=== PATIENT | male | born 1955 | race Caucasian/White ===

== ENCOUNTER 2021-10-23 08:28 | Outpatient (REF) | payer MEDICARE, SELFPAY ==
--- NOTE | ~2021-10-23 | XR_ITS ---
EXAMINATION: XR HIP, LEFT CLINICAL INFORMATION: Chronic pain. COMPARISON: None TECHNIQUE: AP and frog-leg lateral views of the left hip. FINDINGS: Bones and soft tissues are normal. No fracture. Alignment is anatomic. Hip joint space is maintained. The left femoral head appears smooth. No foreign body is seen. XR/XR hip LT min 2V IMPRESSION: Normal left hip.
== END 2021-10-23 08:29 | disposition home or self-care (01) ==
LOC: HO.LAB 08:28
PROVIDERS: PCP Internal Medicine; Visit Provider Internal Medicine
DX: M25.552 Pain in left hip (principal)
CPT/HCPCS: 73502

== ENCOUNTER 2021-11-01 18:51 | Outpatient (REF) | payer MEDICARE, SELFPAY ==
--- NOTE | ~2021-11-01 | MR_ITS ---
EXAMINATION: MR HIP WITHOUT CONTRAST, LEFT CLINICAL INFORMATION: Left hip pain, tenderness, and limited range of motion. Buckling of the femoral head. COMPARISON: Left hip radiographs dated 10/23/2021. TECHNIQUE: MRI of the left hip was obtained using routine sequences on a high-field magnet. FINDINGS: ACETABULAR LABRUM: Linear fluid signal within the undersurface of the anterosuperior labrum, consistent with nondisplaced undersurface tearing. Mild fraying through the periphery of the anterosuperior labrum. ARTICULAR CARTILAGE/BONE: Full-thickness superolateral acetabular and femoral head articular cartilage loss with mild underlying subchondral cystic change. Small marginal osteophytes. No stress reaction, fracture, or avascular necrosis. The acetabular depth is within normal limits. MUSCLES/TENDONS: Mild gluteus minimus tendinosis. There is edema within the distal iliopsoas muscle with mild adjacent soft tissue edema, consistent with an acute muscle strain. JOINT FLUID/BURSA: Moderate joint effusion. Lobulated heterogeneous signal along the anterior aspect of the femoral head/neck junction measuring approximately 3 x 1.3 x 3.3 cm, consistent with lobulated synovitis. INTRAPELVIC STRUCTURES: Unremarkable. MR/MR hip LT wo con IMPRESSION: 1. No displaced undersurface tear of the anterosuperior labrum with peripheral labral fraying. 2. Moderate left hip osteoarthritis. Moderate joint effusion with anterior lobulated synovitis measuring up to 3.3 cm. No stress reaction, fracture, or avascular necrosis. 3. Acute strain of the distal iliopsoas myotendinous junction without a measurable tendon defect. 4. Mild gluteus minimus tendinosis.
== END 2021-11-01 18:52 | disposition home or self-care (01) ==
LOC: HO.MRI 18:51
PROVIDERS: PCP Internal Medicine; Visit Provider Internal Medicine
DX: M25.552 Pain in left hip (principal)
CPT/HCPCS: 73721

== ENCOUNTER 2024-10-28 12:54 | Outpatient (AMB) | payer MEDICARE, SELFPAY ==
--- NOTE | 2024-10-28 12:56 | MHC.OFFVIS ---
Vital Signs 10/28/24 13:04 Height 5 ft 10 in Weight 206 lb BMI 29.6 BP 150/85 H Blood Pressure Location Rt brachial Position Sitting Pulse 70 Intake Visit Reasons: [facility] Intake Note: Patient is seen in office for evaluation and treatment of a right inguinal hernia. Present for 2yrs. Pt c/o: becoming uncomfortable. Bulge feels large at times. Coughing makes it worse, feels like stabbing pain. ref. Dr aSenz Tower Erector Helper Required: No Accompanied by: Self / Same As Patient Allergies No Known Allergies Allergy (Verified 10/28/24 13:01) Medication List - Last Reconciled 10/28/24 by Torsten Ramirez MD No Known Home Meds HPI Comments Details: 69-year-old male patient presenting for evaluation of a right inguinal hernia. He has known about the hernia for many years but generally had no symptoms. More recently he notes the lump is increasing in size and may be affecting his ability to urinate. The lump does reduce when he is lying down. He denies any nausea, vomiting, fever, chills or recent bowel changes. He reports a previous left inguinal hernia repaired when he was 29 years old. He denies any previous surgery in the right groin. [facility] Medical History Right inguinal hernia Surgical History H/O left inguinal hernia repair Social History Patient Tobacco Use Status: Never used Tobacco Review of Systems Const All systems reviewed & are unremarkable except as noted in HPI and below Denies chills, Denies fever(s), Denies headache(s), Denies poor appetite and Denies weakness ENT Denies headache(s) Card Denies chest pain, Denies irregular heart rhythm, Denies palpitations and Denies dyspnea Resp Denies cough, Denies excessive phlegm production and Denies dyspnea GI Denies abdominal pain, Denies bloating, Denies change in bowel habits, Denies constipation, Denies heartburn, Denies diarrhea, Denies nausea and Denies vomiting Denies difficulty urinating and Denies urinary frequency Musc Denies back pain, Denies muscle weakness and Denies numbness Skin/Breast Denies changing lesions and Denies unusual bruising Neuro Denies headache(s), Denies numbness, Denies paresthesias and Denies weakness Psych Denies anxiety and Denies depression Endo Denies palpitations Edson/Lymph Denies lymphadenopathy Physical Exam Const General: cooperative and no acute distress Nutritional Appearance: well nourished Orientation/consciousness: patient oriented x3 Limitations: no limitations HEENT Head: Yes normocephalic and Yes atraumatic Ears: hearing grossly normal bilaterally Resp Effort & Inspection: normal respiratory effort, no audible wheezes, no cough and no respiratory distress Cardio Jugular venous distension: no JVD GI Other: Examination in the standing position with Valsalva maneuvers confirms a moderate size right inguinal hernia which reduces with light pressure. There is no tenderness to palpation. Well-healed incision in the left groin is noted with no evidence of a recurrent left inguinal hernia. Inspection: Yes normal to inspection Abdomen image: 1. Palpable hernia right side Skin Other: Warm, dry, no rash Neuro General: patient oriented x3 Extrem General: Yes no clubbing, cyanosis or edema Assessment & Plan Assessment & Plan (1) Right inguinal hernia: Code(s): K40.90 - Unilateral inguinal hernia, without obstruction or gangrene, not specified as recurrent Category: Medical Plan 69-year-old male patient presenting with complaints of a lump in the right groin found on examination to have a reducible right inguinal hernia. I recommended repair of this right inguinal hernia with mesh and after discussion of the procedure, risks and alternatives, consents to the procedure. Coding Level of Care Code New Pt Level 4 (72153) Diagnoses Right inguinal hernia K40.90
[2024-10-28 13:04] VITALS: BP 150/85; PULSE 70; BMI 29.6
--- OUTSIDE RECORDS SUMMARY | 2024-10-28 16:44 | XMS_ITS | Patient Health Record ---
Author Organization [facility] Address [address] [place] [address] Care Team Providers Care Tram Inspector Name Role Phone Jason Saenz MD Primary Care Provider Crow Dhaliwal Unavailable [phone] REASON FOR REFERRAL No Information IMMUNIZATIONS Vaccine Route Administration Date Status Comme nts Influenza Unknown 06/04/2019 Refused SOCIAL HISTORY Sex Assigned At : Social History Observation Description Sex Assigned At Unknown PROBLEMS Problem Type ICD Code Onset Dates Problem Status W/U Status Risk SNOMED Code Notes Problem Encounter for screening for malignant neoplasm of colon (Z12.11) Active confirmed 947573480 Problem Preprocedural examination (Z01.818) Active confirmed 931497128901858 Problem Hx of adenomatous colonic polyps (Z86.010) Active confirmed 576001355 PLAN OF TREATMENT Future Test Test Name Order Date COLONOSCOPY 08/12/2012 COLONOSCOPY 06/04/2019 Next Appt Details Provider Name:Crow Ray Graham , 03/09/2025 01:00:00 PM, [address], [address], [place], [address], Insurance Providers Payer Name Payer Address Payer Phone Subscriber Number Group Number Insured Name Patient Relationship to Insured Coverage Start Date Coverage End Date MEDICARE OF [place] [address] [place] [address] [id number] CARISSA KAY Self - patient is the insured MED[employer] ATTN CLAIMS [address] [place] [address] [id number] CARISSA KAY Self - patient is the insured MEDICAL (GENERAL) HISTORY Medical History History ICD Code Denies [place],DM,CVA,Lung disease,renal dise ase Colonoscopy 09/2012--1 small tubular nargis greta removed Surgical History Surgery Date(Month/Year) Vasectomy Left Knee
== END 2024-10-28 13:17 | disposition home or self-care (01) ==
PROVIDERS: PCP Internal Medicine; Visit Provider Surgery
DX: K40.90 Unilateral inguinal hernia, without obstruction or gangrene, not specified as recurrent (principal)
CPT/HCPCS: 99204

== ENCOUNTER → 2024-10-28 12:54 | Outpatient (BNVA) | payer MEDICARE, SELFPAY | PROVIDERS: PCP Internal Medicine; Visit Provider Surgery | DX: K40.90 Unilateral inguinal hernia, without obstruction or gangrene, not specified as recurrent (principal) | CPT/HCPCS: 99202 ==

== ENCOUNTER 2024-10-30 07:57 | Outpatient (REF) | payer MEDICARE, SELFPAY ==
[2024-10-30 08:10] LABS: MANUAL DIFF FLAG NO
[2024-10-30 08:24] LABS: Basophils Percent Auto 0.4 % (0-2); Eosinophils Absolute Auto 0.2 X10*3/uL (0.0-0.4); Hematocrit 45.5 % (42.0-52.0); Hemoglobin 16.1 g/dl (14.0-18.0); Imm Gran Abs Auto 0.01 X10*3/uL (0.00-0.03); Imm Gran Pct Auto 0.2 % (0.0-0.4); Lymphocytes Absolute Auto 1.7 X10*3/uL (1.2-4.9); Lymphocytes Percent Auto 32.1 % (20-40); Mean Corpuscular HGB Conc 35.4 g/dl (31.0-36.0); Mean Corpuscular Hemoglobin 30.8 pg (27.0-33.0); Mean Corpuscular Volume 87.2 fL (80.0-98.0); Mean Platelet Volume 9.8 fL (9.4-12.4); Monocytes Absolute Auto 0.5 X10*3/uL (0.1-1.2); Monocytes Percent Auto 8.6 % (2-11); Neutrophils Percent Auto 55.7 % (45-73); Platelet Count 190 X10*3/uL (160-400); Red Blood Count 5.22 X10*6/uL (4.60-5.80); Red Cell Distribution Width 12.2 % (11.0-16.0); White Blood Count 5.4 X10*3/uL (4.8-10.8)
[2024-10-30 08:50] LABS: Alanine Aminotransferase 35 U/L (0-40); Albumin Level 4.4 g/dL (3.5-5.0); Alkaline Phosphatase 89 U/L (39-117); Anion Gap 11 (12-20); Aspartate Amino Transferase 26 U/L (5-37); Bilirubin Total 0.5 mg/dL (0.0-1.0); Blood Urea Nitrogen 18 mg/dL (9-16); Calcium 9.4 mg/dL (8.4-10.2); Carbon Dioxide 26 mmol/L (22-29); Chloride 107 mmol/L (96-108); Cholesterol 209 mg/dL (<200); Estimated Glomerular Filt Rate > 60; Glucose Fasting 94 mg/dL (60-99); HDL Cholesterol 41 mg/dL (>40); LDL Cholesterol Calculated 141 mg/dL (<100); Potassium 4.2 mmol/L (3.3-5.1); Sodium 140 mmol/L (135-145); Total Protein 7.8 g/dL (6.5-8.0); Triglycerides 135 mg/dL (<150)
[2024-10-30 10:15] LABS: Appearance Urine Clear; Color Urine Yellow; Glucose Urine UA Negative (Negative); Leukocyte Esterase Urine Small (1+) (Negative); Nitrite Urine Negative (Negative); PH 5.5 (5.0-9.0); UMIC TRIGGER UA YES; Urine Blood Negative (Negative); Urine Ketones Negative (Negative); Urine Protein Negative (Neg-Trace)
[2024-10-30 10:30] LABS: Bacteria Urine None Seen (None Seen); Hyaline Casts Urine 0-2 /LPF (0-2); RBC Urine 0-2 /HPF (0-2); Squamous Epithelial Cell Urine 0-2 /HPF (0-2); WBC Urine 0-5 /HPF (0-5)
== END 2024-10-30 07:58 | disposition home or self-care (01) ==
LOC: HO.LAB 07:57
PROVIDERS: PCP Internal Medicine; Visit Provider Internal Medicine
DX: N40.0 Benign prostatic hyperplasia without lower urinary tract symptoms (principal); Z12.5 Encounter for screening for malignant neoplasm of prostate; I25.10 Atherosclerotic heart disease of native coronary artery without angina pectoris
CPT/HCPCS: 36415; 80053; 80061; 81001; 81003; 84153; 85025

== ENCOUNTER 2024-12-08 05:53 | Day surgery (SDC) | payer MEDICARE, SELFPAY ==
[2024-12-06 09:12] VITALS: BMI 29.6
--- NOTE | 2024-12-06 14:42 | HO.ANESPROP2 ---
Documented by User: Madie Yang NP 12/06/24 14:43 HPI - Anesthesia Eval Consult details Narrative: 69yo M for Repair Hernia Inguinal Reducible with mesh PMFSH Active Problems Active Problems: All Active Problems Right inguinal hernia (Acute) Past Medical History Medical History Right inguinal hernia Surgical History Surgical History H/O left inguinal hernia repair Social History Social History Patient Tobacco Use Status: Never used Tobacco Use of substances other than those prescribed or required for medical reasons: No Advance Directives: No Advance Directives Information Provided: Yes Meds Allergies Allergy/AdvReac Type Severity Reaction Status Date / Time No Known Allergies Allergy Verified 10/28/24 13:01 Home Medications ?Medication ?Instructions ?Recorded ?Confirmed ?Last Taken ?Type No Known Home Meds 10/28/24 10/28/24 Unknown History Exam Height,Weight and Vital Signs: Height 5 ft 10 in Weight 93.44 kg Pertinent Lab Results Pertinent Lab Results: Laboratory Tests 10/30/24 08:09 WBC 5.4 Hgb 16.1 Hct 45.5 Plt Count 190 Sodium 140 Potassium 4.2 Chloride 107 Carbon Dioxide 26 BUN 18 H Creatinine 0.95 Assessment and Plan Assessment Anesthesia Assessment: Chart Reviewed Documented by User: Jose M Layne MD 12/08/24 07:28 PMFSH Past Medical History Medical History Right inguinal hernia Functional capacity: wheelchair bound Family History Family history of problems with anesthesia: No Surgical History Surgical History H/O left inguinal hernia repair History of Problems with Anesthesia: No Social History Social History Patient Tobacco Use Status: Never used Tobacco Use of substances other than those prescribed or required for medical reasons: No Advance Directives: No Advance Directives Information Provided: Yes Meds Allergies Allergy/AdvReac Type Severity Reaction Status Date / Time No Known Allergies Allergy Verified 10/28/24 13:01 Home Medications ?Medication ?Instructions ?Recorded ?Confirmed ?Last Taken ?Type No Known Home Meds 10/28/24 10/28/24 Unknown History Exam Airway Mallampati Class: II TM Dist: <=3cm Neck ROM: Full Loose/Missing/Broken Teeth: No Heart: ok Lungs: ok Assessment and Plan Assessment Anesthesia Assessment: Anesthesia Plan Discussed Final Anesthetic Review Family History of Problems with Anesthesia: No History of Problems with Anesthesia: No NPO: Yes ASA Class: II Final Preanesthetic Review: No Changes in Pt Med Stat, Meds/Allgs Chart Reviewed, Consent Obtained/Reviewed and Anes Risks/Benef Reviewed Patient Risk: Intermediate Procedure Risk: Low Anesthetic Plan Anesthetic Plan: GA and Agree w/ Assess. and Plan Disposition: Standard PACU
[2024-12-08] MEDS: Lactated Ringers 1,000 ML 100 ML IVCONT (06:51)
[2024-12-08 06:52] VITALS: BP 174/99; PULSE 56; RESP 16; TEMP 36.8; O2SAT 100; BMI 29.7
[2024-12-08] MEDS: ceFAZolin Sodium/Dextrose,Iso 2 GM/50 ML PIGGYBACK IV (07:25)
--- NOTE | 2024-12-08 07:30 | MHC.SHP ---
Pre-Procedural Eval Section A - 24 Hr Update-Section A only Date of Service: 12/08/24 The patient is an INPATIENT: No Changes since office visit: Yes Patient answered all questions; No Cold of Flu in the past 2 weeks, No New Medical Problems and No Changes in Medication The patient has been examined within 24 hours of the surgical procedure. The History & Physical has been completed within 30 days and I have reviewed it.: No Section B - Complete if H&P > 30 days Chief Complaint: Unilateral inguinal hernia, without obstruction Details of Present Illness: No changes Relevant Family History (Specify if Yes): No Relevant Social History: None Present Medications: see Short Stay Collaborative assessment Medical History: No relevant PMH History of Previous Operations: No relevant previous surgery Allergies: Allergies Allergy/AdvReac Type Severity Reaction Status Date / Time No Known Allergies Allergy Verified 10/28/24 13:01 Review of Systems Sugical H&P ROS: Negative: Constitution, Cardiovascular, Respiratory, Neurological, Psychiatric, Hem-Onc, Allergic/Immunologic, Gastrointestinal, Genitourinary, Musculoskeletal and Integumentary Exam Surgical H&P Exam: Normal: HEENT, Normal: Heart, Normal: Lungs, Normal: Extremities, Normal: Abdomen and Normal: Skin Plan Diagnosis/Plan: Unchanged I have reviewed the history and physical and performed a pertinent physical examination on my patient. No changes have occurred unless specified. Time Spent With Patient Time: Total time managing care of this patient today ____ minutes.
--- NOTE | 2024-12-08 08:26 | W.PM.OPN ---
Operative Note Operative Note Date of Service: 12/08/24 Narrative: Preoperative diagnosis: Right inguinal hernia Postoperative diagnosis: same Procedure: Repair right inguinal hernia with mesh Surgeon: Torsten Ramirez MD Business And Services Instructor: Meghan Mary PA-C, Carlos Antony, MS-3 Anesthesia: General LMA Indications for procedure: 69-year-old male with a previous history of a left inguinal hernia repaired several years ago now presenting with a new hernia on the right side. On examination the hernia is in the medial inguinal canal suggestive of a direct inguinal hernia. The hernia is easily reducible with light pressure. Operative findings: Direct inguinal hernia, reducible repaired with a large extended PHS mesh. Specimen: None Estimated blood loss: 2 mL Complications: None Procedure details: Patient was brought to the OR and placed in a supine position. After administering general anesthesia the patient's abdomen was prepped with ChloraPrep and draped in a sterile fashion. A surgical time-out was called the consent confirmed. Patient received preoperative antibiotics and Venodyne boots were in place. Local anesthesia was then infiltrated over the right inguinal ligament. Incision was then made with a scalpel and carried out through subcutaneous tissue, past Tomasa's fascia, and up to the external oblique aponeurosis. Additional local was infiltrated below the external oblique aponeurosis. This was then incised with a scalpel widened with the Metzenbaum scissors. The spermatic cord was then dissected free from the surrounding inguinal canal. This was retracted using a Juan drain. A direct inguinal hernia was easily identified. Fibers of the cremaster muscle were and no indirect hernia sac identified. Attention was then directed to the direct hernia. Fibers of the internal oblique and transversalis aponeurosis were then incised and the preperitoneal space entered. The preperitoneal space was then further opened using an open Ray-Johnny sponge. A large extended PHS mesh was then obtained. The circular underlay was deployed within the preperitoneal space in the overlay secured to the pubic tubercle, conjoined tendon, and shelving edge of the inguinal ligament using a 0 Polysorb suture. A slit was made in the mesh at the internal ring in the mesh wrapped around the spermatic cord. This was then secured to the shelving edge using the 0 Polysorb suture. Additional sutures were placed laterally to secure the mesh along the conjoined tendon and shelving edge. The internal ring was loose enough to allow the tip of the index finger to pass. The remainder of the mesh was placed below the external oblique aponeurosis. Wounds were then irrigated with saline solution and suctioned dry. External oblique aponeurosis was then closed over the mesh using a running 2-0 Polysorb suture. Approximately 8 mL of Zenrelef was then instilled below the external oblique aponeurosis for postop pain relief. Tomasa's fascia was then reapproximated using interrupted 3-0 Polysorb sutures. Dermis was then reapproximated using interrupted 3-0 Polysorb sutures. Skin was closed using a running subcuticular 4-0 Polysorb suture. Steri-Strips, 2 x 2 gauze and Tegaderm were then applied. The patient tolerated the procedure well. Sponge, instrument, and needle counts reported as correct. The patient was transferred to PACU in stable condition.
[2024-12-08 08:43] VITALS: BP 125/83; PULSE 70; RESP 16; TEMP 36.1; O2SAT 96
[2024-12-08 08:48] VITALS: BP 104/54; PULSE 60; RESP 16; O2SAT 99
[2024-12-08 08:53] VITALS: BP 108/67; PULSE 63; RESP 16; O2SAT 98
[2024-12-08 08:58] VITALS: BP 113/79; PULSE 57; RESP 16; O2SAT 99
[2024-12-08 09:13] VITALS: BP 120/82; PULSE 51; RESP 18; TEMP 36.1; O2SAT 99
== END 2024-12-08 09:41 | disposition home or self-care (01) ==
PROVIDERS: PCP Internal Medicine; Visit Provider Surgery
PROC: (CPT 49505; principal; 2024-12-08 07:30)
DX: K40.90 Unilateral inguinal hernia, without obstruction or gangrene, not specified as recurrent (principal); Z98.890 Other specified postprocedural states
CPT/HCPCS: 49505; C1781; C9088; J0690; J2003; J2704; J2795; J3010

== ENCOUNTER → 2024-12-08 05:53 | Outpatient (BNV) | payer MEDICARE, SELFPAY | PROVIDERS: PCP Internal Medicine; Visit Provider Surgery | DX: K40.90 Unilateral inguinal hernia, without obstruction or gangrene, not specified as recurrent (principal) | CPT/HCPCS: 49505 ==

== ENCOUNTER 2024-12-16 08:57 | Outpatient (AMB) | payer MEDICARE, SELFPAY ==
--- NOTE | 2024-12-16 08:58 | MHC.OFFVIS ---
Vital Signs 12/16/24 09:04 Height 5 ft 10 in Weight 210 lb BMI 30.1 BP 145/85 H Blood Pressure Location Lt brachial Position Sitting Pulse 63 Intake Visit Reasons: s/p Right inguinal hernia w/mesh Intake Note: Patient is seen in office for post op assessment post Repair right inguinal hernia with mesh. Pt c/o: denies any concerns at the time of visit surgery:12/08/24 Railroad Passenger Agent Required: No Accompanied by: Self / Same As Patient Allergies No Known Allergies Allergy (Verified 12/16/24 09:03) Medication List - Last Reconciled 12/16/24 by Torsten Ramirez MD No Known Home Meds HPI Comments Details: Patient returns 1 week following repair of a right inguinal hernia with mesh. He reports some residual discomfort but has only been taking Tylenol which he stopped several days ago. He denies any redness or discharge from the incision. He is eating well and reports normal bowel movements. [facility] Medical History Right inguinal hernia Surgical History History of right inguinal hernia repair (12/08/24) H/O left inguinal hernia repair Social History Patient Tobacco Use Status: Never used Tobacco Physical Exam Vital Signs: Last Vital Signs Pulse 63 12/16/24 09:04 BP 145/85 H 12/16/24 09:04 BMI result Body Mass Index 30.1 Const General: no acute distress Nutritional Appearance: well nourished Orientation/consciousness: patient oriented x3 Resp Effort & Inspection: normal respiratory effort GI Other: Hernia incision in the right groin is clean, dry, and intact without redness or discharge. No hernia noted with Valsalva maneuvers. Inspection: Yes normal to inspection Palpation (GI): Soft to palpation, nontender and no guarding Neuro General: patient oriented x3 Assessment & Plan Assessment & Plan (1) Right inguinal hernia: Code(s): K40.90 - Unilateral inguinal hernia, without obstruction or gangrene, not specified as recurrent Category: Medical Plan 69-year-old male returning 1 week following repair of a right inguinal hernia with mesh on 12/08/2024. He tolerated the procedure well and his wounds are healing nicely. He has no evidence of hernia infection or recurrence. Continue to avoid lifting greater than 10 lb for the next 4 weeks and return at that time for wound check. Coding Level of Care Code Global (58053) Diagnoses Right inguinal hernia K40.90
[2024-12-16 09:04] VITALS: BP 145/85; PULSE 63; BMI 30.1
--- OUTSIDE RECORDS SUMMARY | 2024-12-16 09:29 | XMS_ITS | Patient Health Record ---
Author Organization [facility] Address [address] [place] [address] Care Team Providers Care Jacquard Card Lacer Name Role Phone Jason Saenz MD Primary Care Provider Sarabjit Graham Crow Unavailable [phone] Reason For Referral No Information Immunizations Vaccine Route Administration Date Status Comme nts Influenza Unknown 06/04/2019 Refused Problems Problem Type SNOMED Code ICD Code Onset Dates Problem Status W/U Status Risk Notes Problem [id number] Encounter for screening for malignant neoplasm of colon (Z12.11) Active confirmed Problem 721682478863287 Preprocedural examination (Z01.818) Active confirmed Problem 380561155 Hx of adenomatou s colonic polyps (Z86.010) Active confirmed Plan Of Treatment Future Test Test Name Order Date COLONOSCOPY 08/12/2012 COLONOSCOPY 06/04/2019 Next Appt Details Provider Name:Crow Ray Graham , 03/09/2025 01:00:00 PM, [address], [address], [place], [address], Insurance Providers Payer Name Payer Address Payer Phone Subscriber Number Group Number Insured Name Patient Relationship to Insured Coverage Start Date Coverage End Date MEDICARE OF [place] [address] [place] [address] [id number] CARISSA KAY Self - patient is the insured MED[employer] ATTN CLAIMS [address] [place] [address] [phone] [id number] CARISSA KAY Self - patient is the insured Medical (General) History Medical History History ICD Code Denies [place],DM,CVA,Lung disease,renal dise ase Colonoscopy 09/2012--1 small tubular nargis greta removed Surgical History Surgery Date(Month/Year) Vasectomy Left Knee
== END 2024-12-16 09:25 | disposition home or self-care (01) ==
LOC: HO.HGS 08:58
PROVIDERS: PCP Internal Medicine; Visit Provider Surgery
DX: K40.90 Unilateral inguinal hernia, without obstruction or gangrene, not specified as recurrent (principal)
CPT/HCPCS: 99024

== ENCOUNTER → 2024-12-16 08:57 | Outpatient (BNVA) | payer MEDICARE, SELFPAY | PROVIDERS: PCP Internal Medicine; Visit Provider Surgery | DX: Z48.815 Encounter for surgical aftercare following surgery on the digestive system (principal); Z98.890 Other specified postprocedural states | CPT/HCPCS: 99212 ==

== ENCOUNTER 2025-01-21 09:59 | Outpatient (AMB) | payer MEDICARE, SELFPAY ==
--- NOTE | 2025-01-21 10:04 | MHC.OFFVIS ---
Vital Signs 01/21/25 10:16 Height 5 ft 10 in Weight 209 lb 14.081 oz BMI 30.1 BP 147/82 H Blood Pressure Location Lt brachial Position Sitting Pulse 55 Intake Visit Reasons: 1 mth follow up s/p Right inguinal hernia w/mesh Intake Note: Patient is seen in office for one month follow up visit, post right inguinal hernia repair. Pt c/o: denies any concerns Supervisor Toy Assembly Required: No Accompanied by: Self / Same As Patient Allergies No Known Allergies Allergy (Verified 01/21/25 10:16) Medication List - Last Reconciled 01/21/25 by Torsten Ramirez MD No Known Home Meds HPI Comments Details: 69-year-old male patient returning 1 month following repair of a right inguinal hernia with mesh. He reports 1 episode of sharp pain. He has been mowing the lawn and raking without any difficulties. He denies any nausea, vomiting, fever or chills. In general he feels very well. [facility] Medical History Right inguinal hernia Surgical History History of right inguinal hernia repair (12/08/24) H/O left inguinal hernia repair Social History Patient Tobacco Use Status: Never used Tobacco Physical Exam Const General: no acute distress Nutritional Appearance: well nourished Orientation/consciousness: patient oriented x3 Resp Effort & Inspection: normal respiratory effort GI Other: Hernia incision in the right groin is clean, dry, and intact without redness or discharge. No hernia noted with Valsalva maneuvers. Inspection: Yes normal to inspection Palpation (GI): Soft to palpation, nontender and no guarding Neuro General: patient oriented x3 Assessment & Plan Assessment & Plan (1) Right inguinal hernia: Code(s): K40.90 - Unilateral inguinal hernia, without obstruction or gangrene, not specified as recurrent Category: Medical Plan Right inguinal hernia repair with mesh one-month ago. Patient tolerated the procedure well and his wounds are healing nicely. There is no evidence of hernia recurrence. He may return to normal activity without restrictions and should follow up as needed. Coding Level of Care Code Global (80364) Diagnoses Right inguinal hernia K40.90
[2025-01-21 10:16] VITALS: BP 147/82; PULSE 55; BMI 30.1
== END 2025-01-21 10:31 | disposition home or self-care (01) ==
LOC: HO.HGS 09:59
PROVIDERS: PCP Internal Medicine; Visit Provider Surgery
DX: K40.90 Unilateral inguinal hernia, without obstruction or gangrene, not specified as recurrent (principal)
CPT/HCPCS: 99024

== ENCOUNTER → 2025-01-21 09:59 | Outpatient (BNVA) | payer MEDICARE, SELFPAY | PROVIDERS: PCP Internal Medicine; Visit Provider Surgery | DX: Z09 Encounter for follow-up examination after completed treatment for conditions other than malignant neoplasm (principal); Z87.19 Personal history of other diseases of the digestive system; Z98.890 Other specified postprocedural states | CPT/HCPCS: 99212 ==

== ENCOUNTER 2025-06-06 10:24 | Day surgery (SDC) | payer MEDICARE, SELFPAY ==
--- OUTSIDE RECORDS SUMMARY | 2025-04-25 15:10 | XMS_ITS | Patient Health Record ---
Author Organization [facility] Address [address] [place] [id number] Care Team Providers Care Business Integration Analyst Name Role Phone SEBASTIAN LOVING Primary Care Provider Crow Chatterjee Unavailable [phone] Allergies No Known Allergies Reason For Referral No Information Immunizations Vaccine Route Administration Date Status Comme nts Influenza Unknown 07/19/2024 Administered Influenza Unknown 06/04/2019 Refused Problems Problem Type SNOMED Code ICD Code Onset Dates Problem Status W/U Status Risk Notes Problem [id number] Encounter for screening for malignant neoplasm of colon (Z12.11) Active confirmed Problem 941999719616674 Preprocedural examination (Z01.818) Active confirmed Problem [id number] Hx of adenomatou s colonic polyps (Z86.010) Active confirmed Vital Signs Temperature 97.5 degrees Fahrenheit 03/09/2025 Blood pressure diastolic 01 mm Hg 03/09/2025 Height 68.50 in 03/09/2025 Blood pressure systolic 001 mm Hg 03/09/2025 Weight 207 lbs 03/09/2025 BMI 31.01 kg/m2 03/09/2025 Procedures Procedure Date Ordered Date Performed Result Body Sit e COLONOSCOPY 03/09/2025 N/A Encounters Encounter Location Date Provider Diagnosis [facility] [address] [place] [id number] 03/09/2025 Crow Graham Hx of adenomatous colonic polyps Z86.010 ; Preprocedural examination Z01.818 and Encounter for screening for malignant neoplasm of colon Z12.11 Assessments Encounter Date Diagnosis (ICD Code) Assessment Notes Treatment Notes Treatment Clinical Notes Section Notes 03/09/2025 Preprocedural examination (ICD-10 - Z01.818) Overall, Carissa appears quite well. Given his age, good clinical appearance, history of tubular adenomas, and his last colonoscopy being over 5 years ago, I did recommend a follow-up colonoscopy for further screening purposes. We did review the rationale for this in regard to colon cancer prevention. Full consent has been obtained for this, including risks of bleeding and perforation. The procedure will be done with monitored anesthesia care. Carissa was comfortable with this plan. Thank you again for allowing me to participate in Carissa's care. I shall continue to keep you advised of his progress. 03/09/2025 Hx of adenomatous colonic polyps (ICD-10 - Z86.010) Overall, Carissa appears quite well. Given his age, good clinical appearance, history of tubular adenomas, and his last colonoscopy being over 5 years ago, I did recommend a follow-up colonoscopy for further screening purposes. We did review the rationale for this in regard to colon cancer prevention. Full consent has been obtained for this, including risks of bleeding and perforation. The procedure will be done with monitored anesthesia care. Carissa was comfortable with this plan. Thank you again for allowing me to participate in Carissa's care. I shall continue to keep you advised of his progress. 03/09/2025 Encounter for screening for malignant neoplasm of colon (ICD-10 - Z12.11) Overall, Carissa appears quite well. Given his age, good clinical appearance, history of tubular adenomas, and his last colonoscopy being over 5 years ago, I did recommend a follow-up colonoscopy for further screening purposes. We did review the rationale for this in regard to colon cancer prevention. Full consent has been obtained for this, including risks of bleeding and perforation. The procedure will be done with monitored anesthesia care. Carissa was comfortable with this plan. Thank you again for allowing me to participate in Carissa's care. I shall continue to keep you advised of his progress. Plan Of Treatment Pending Test Test Name Order Date COLONOSCOPY 03/09/2025 Future Test Test Name Order Date COLONOSCOPY 08/12/2012 COLONOSCOPY 06/04/2019 Next Appt Details Provider Name:Crow Ray Gladys , 06/06/2025 12:30:00 PM, [address] [place] [address] , [place], [place], [id number], Insurance Providers Payer Name Payer Address Payer Phone Subscriber Number Group Number Insured Name Patient Relationship to Insured Coverage Start Date Coverage End Date [facility] [address] [place] [address] [phone] [id number] CARISSA KAY Self - patient is the insured Medical (General) History Medical History History ICD Code Denies CT,DM,CVA,Lung disease,renal dise ase Colonoscopy 09/2012--1 small tubular nargis greta removed Colonoscopy 2018 with 1 tubular adenoma removed Surgical History Surgery Date(Month/Year) Right hernia surgery Left Knee Vasectomy
[2025-06-02 13:57] VITALS: BMI 31.0
--- NOTE | 2025-06-03 11:51 | P.CONAN_ITS ---
Documented by User: Candice Daniels NP 06/03/25 11:51 HPI - Anesthesia Eval Consult details Narrative: 69 yr old male for colonoscopy [facility] Active Problems Active Problems: All Active Problems (Updated 06/02/25 @ 13:56 by Michelle Wills RN) Right inguinal hernia (Acute) Past Medical History Medical History No pertinent past medical history Family History Family history of problems with anesthesia: No Surgical History Surgical History H/O colonoscopy History of right inguinal hernia repair (12/08/24) H/O left inguinal hernia repair History of Problems with Anesthesia: No Social History Social History (Updated 06/02/25 @ 13:56 by Michelle Wills RN) Household Members: Spouse Are you a primary personal care worker to a significant other at home: No Do you presently have visiting nurse or other home services: No Patient Tobacco Use Status: Former Tobacco user Tobacco use type: Cigarette Use of substances other than those prescribed or required for medical reasons: No Have you been hit, kicked, punched, or otherwise hurt by someone within the past year? If so, by whom?: No Are you DNR?: No Advance Directives: No Advance Directives Information Provided: Yes Poor oral hygiene: No Meds Allergies Allergy/AdvReac Type Severity Reaction Status Date / Time No Known Allergies Allergy Verified 06/06/25 10:29 Home Medications ?Medication ?Instructions ?Recorded ?Confirmed ?Last Taken ?Type No Known Home Meds 12/16/24 06/02/25 Un known History Exam Height,Weight and Vital Signs: Height 5 ft 8.5 in Weight 93.894 kg Assessment and Plan Final Anesthetic Review Family History of Problems with Anesthesia: No History of Problems with Anesthesia: No Documented by User: Janny Looney MD 06/06/25 12:11 [facility] Past Medical History Medical History No pertinent past medical history Surgical History Surgical History H/O colonoscopy History of right inguinal hernia repair (12/08/24) H/O left inguinal hernia repair Social History Social History (Updated 06/02/25 @ 13:56 by Michelle Wills RN) Household Members: Spouse Are you a primary personal care worker to a significant other at home: No Do you presently have visiting nurse or other home services: No Patient Tobacco Use Status: Former Tobacco user Tobacco use type: Cigarette Use of substances other than those prescribed or required for medical reasons: No Have you been hit, kicked, punched, or otherwise hurt by someone within the past year? If so, by whom?: No Are you DNR?: No Advance Directives: No Advance Directives Information Provided: Yes Poor oral hygiene: No Meds Allergies Allergy/AdvReac Type Severity Reaction Status Date / Time No Known Allergies Allergy Verified 06/06/25 10:29 Home Medications ?Medication ?Instructions ?Recorded ?Confirmed ?Last Taken ?Type No Known Home Meds 12/16/24 06/02/25 Un known History Exam Airway Mallampati Class: II TM Dist: >3cm Neck ROM: Full Heart: rrr Assessment and Plan Assessment Anesthesia Assessment: Anesthesia Plan Discussed and Chart Reviewed Final Anesthetic Review NPO: Yes ASA Class: II Final Preanesthetic Review: No Changes in Pt Med Stat, Meds/Allgs Chart Reviewed and Consent Obtained/Reviewed Patient Risk: Low Procedure Risk: Low Anesthetic Plan Anesthetic Plan: MAC: Disposition: Standard PACU
[2025-06-06 10:50] VITALS: BP 138/81; PULSE 60; RESP 12; TEMP 36.4; O2SAT 97; BMI 28.6
[2025-06-06] MEDS: Lactated Ringers 1,000 ML 100 ML IVCONT (10:56)
[2025-06-06 13:11] VITALS: BP 102/69; PULSE 58; RESP 16; TEMP 37; O2SAT 98
--- NOTE | 2025-06-06 13:15 | P.BOP_ITS ---
Brief Operative Note Date of Service: 06/06/25 Pre-op diagnosis: Screening Post-op diagnosis: other (Polyps) Procedure: Colonoscopy to the cecum and TI with bx/removal of cecal polyp and cold snare polypectomy of polyp at 20cm Surgeon: Crow Graham MD Anesthesia: MAC Was an Entry Level Software Engineer used for this Procedure?: No Estimated blood loss (mL): 2.0 Pathology: other (A. Cecal polyp B. Polyp at 20cm) Condition: stable Disposition: PACU
[2025-06-06 13:26] VITALS: BP 108/74; PULSE 56; RESP 16; TEMP 36.9; O2SAT 98
--- NOTE | 2025-06-06 13:36 | OP_ITS ---
DATE OF SERVICE: 06/06/2025 SURGEON: Crow Graham MD INDICATIONS: The patient presents for evaluation of personal history of tubular adenoma of the colon and need for colorectal cancer screening. Full consent has been obtained from him for this, including risks of bleeding and perforation. PREOPERATIVE DIAGNOSIS: POSTOPERATIVE DIAGNOSIS: PROCEDURE PERFORMED: Colonoscopy to the cecum with biopsy and removal of polyp, and cold snare polypectomy. ESTIMATED BLOOD LOSS: COMPLICATIONS: ANESTHESIA: Monitored anesthesia care. ASSISTANTS: SPECIMENS: PREOPERATIVE DIAGNOSES: Colorectal cancer screening and personal history of tubular adenoma of the colon. POSTOPERATIVE DIAGNOSES: Colorectal cancer screening and personal history of tubular adenoma of the colon, colon polyps, diverticulosis, and internal hemorrhoids. DESCRIPTION OF PROCEDURE: The patient was placed in the left lateral decubitus position. The digital rectal exam revealed no abnormalities. The Olympus video pediatric colonoscope was entered into the rectum and advanced easily to the cecum. Once in the cecum, I did identify cecal pouch with appendiceal orifice and a normal-appearing ileocecal valve. The terminal ileum was cannulated and appeared normal. The scope was withdrawn back in the colon. The entire cecum was well visualized and appeared normal other than a 3 mm polyp, which was biopsied and completely removed with a cold biopsy forceps. The scope was slowly withdrawn assessing all mucosal surfaces carefully. Preparation was excellent. At 20 cm a flat, but raised approximately 10 mm possibly serrated polyp, which was removed completely by cold snare polypectomy. The polypectomy site appeared clean, without any sign of residual polyp nor bleeding. I did not visualize any other polyps, colitis, nor angiodysplasia. There were occasional diverticula in the sigmoid colon. In the rectum, scope was retroflexed visualizing internal hemorrhoids, but no other pathology. The rectal mucosa appeared normal. Scope was straightened and withdrawn from the patient. He tolerated the procedure well and was returned to the recovery area in stable condition. IMPRESSION: 1. Colon polyps. 2. Diverticulosis. 3. Internal hemorrhoids. PLAN: Results of the pathology will be checked. I would recommend a repeat colonoscopy in 5 years. He will otherwise see me on a p.r.n. basis. MD ELDON Todd/VIKY / [id number]
== END 2025-06-06 13:57 | disposition home or self-care (01) ==
PROVIDERS: PCP Internal Medicine; Visit Provider Internal Medicine
PROC: 0DJD8ZZ Inspection of Lower Intestinal Tract, Via Natural or Artificial Opening Endoscopic (ICD-10-PCS; CPT 45378; principal; 2025-06-06 11:40)
DX: Z12.11 Encounter for screening for malignant neoplasm of colon (principal); D12.0 Benign neoplasm of cecum; K57.30 Diverticulosis of large intestine without perforation or abscess without bleeding; K64.8 Other hemorrhoids; Z86.0101 Personal history of adenomatous and serrated colon polyps
CPT/HCPCS: 45385; 45380; 88305; J2704